=== PATIENT | female | born 1965 | race Caucasian/White ===

== ENCOUNTER → 2017-08-25 | Outpatient (CLI) | payer OTHER ==
--- NOTE | 2017-08-25 09:20 | FL ---
EXAMINATION TYPE: FL barium swallow DATE OF EXAM: 08/25/2017 CLINICAL HISTORY: Recurrent distal abdominal pain after Austyn fundoplication. TECHNIQUE: A double contrast esophagram is performed utilizing air and barium. A total of 56 second s of fluoroscopic time was utilized during procedure with 91 images saved. COMPARISON: None FINDINGS: The esophagus shows normal motility and emptying into the stomach. Small hiatal hernia is p resent in addition to a wide mouth saccular outpouching at the distal esophagus, thought to be postsu rgical with no focal fissuring. No evidence of stricture noted are obstruction. Minimal gastroesopha geal reflux was seen during real time performance of this study in the gravity independent position u tilizing the Valsalva maneuver. This was seen to the distal third of the esophagus. IMPRESSION: 1. Small recurrent hiatal hernia with widemouth saccular outpouching at the distal esophagus, likely postsurgical. 2. Minimal gastroesophageal reflux to the level of the distal third of the esophagus in the gravity i ndependent portion of the examination utilizing the Valsalva maneuver.
== END ==
LOC: RADFLWHC 08:06
PROVIDERS: ATTEND Surgery
DX: K21.9 Gastro-esophageal reflux disease without esophagitis (principal); K44.9 Diaphragmatic hernia without obstruction or gangrene
CPT/HCPCS: 74220

== ENCOUNTER 2017-09-01 10:54 | Day surgery (SDC) | payer OTHER ==
[2017-08-26 14:14] VITALS: BMI 39.1
[~2017-09-01 10:54] MED LIST: LACTATED RINGERS 1,000 ML IV SCH; LIDOCAINE 1% 20 ML VIAL (10MG/ML) FOR IV START INTRADERMA PRN
[2017-09-01 12:10] VITALS: TEMP 98.6
[2017-09-01] MEDS ORDERED: MIDAZOLAM 2 MG/2 ML VIAL IVP ONE (13:20)
--- NOTE | 2017-09-01 13:25 | P.GSHP ---
History of Present Illness H&P Date: 09/01/17 Chief Complaint: Epigastric abdominal pain, GERD This a 52-year-old female who's had complaints of epigastric pain. Patient has a history of previous hiatal hernia Proximally a year ago. She's had some minimal GERD. Past Medical History Past Medical History: GERD/Reflux, Hyperlipidemia, Hypertension, Seizure Disorder Additional Past Medical History / Comment(s): hx seizure disorder last seizure 8 -9 years ago, hiatal hernia, History of Any Multi-Drug Resistant Organisms: None Reported Past Surgical History: Orthopedic Surgery, Tonsillectomy Additional Past Surgical History / Comment(s): arthroscopy rt knee, exploratory lap for fertility issues, EGD,colonoscopy Past Anesthesia/Blood Transfusion Reactions: Family History of Problems w/ Anesthesia, Postoperative Nausea & Vomiting (PONV) Additional Past Anesthesia/Blood Transfusion Reaction / Comment(s): mother hard time waking up Smoking Status: Never smoker - Past Family History Mother Family Medical History: Cancer Additional Family Medical History / Comment(s): breast Medications and Allergies Home Medications Medication Instructions Recorded Confirmed Type Albuterol Nebulized [Ventolin 2.5 mg INHALATION RT-BID PRN 08/10/16 09/01/17 History Nebulized] Ergocalciferol [Vitamin D2 50,000 unit PO MO 08/10/16 09/01/17 History (DRISDOL)] Lisinopril [Zestril] 20 mg PO DAILY 08/10/16 09/01/17 History Simvastatin [Zocor] 40 mg PO HS 08/10/16 09/01/17 History Allergies Allergy/AdvReac Type Severity Reaction Status Date / Time No Known Allergies Allergy Verified 08/26/17 14:09 Surgical - Exam Vital Signs Temp Pulse Resp BP Pulse Ox 98.6 F 98 16 122/94 98 09/01/17 12:07 09/01/17 12:07 09/01/17 12:07 09/01/17 12:07 09/01/17 12:07 - General well developed, no distress - Eyes PERRL - ENT normal pinna - Neck no masses - Respiratory normal expansion - Cardiovascular Rhythm: regular - Abdomen Abdomen: soft, non tender Assessment and Plan Assessment: GERD, abdominal pain. We'll perform EGD
[2017-09-01] MEDS ORDERED: PROPOFOL 10 MG/ML 20 ML VIAL IV ONE (13:31)
[2017-09-01] MEDS ORDERED: GLYCOPYRROLATE 0.2 MG/ML 2 ML VIAL ONE (13:31)
[2017-09-01] MEDS ORDERED: LIDOCAINE 1% INJ 10MG/ML (20 ML MDV) ONE (13:31)
--- NOTE | 2017-09-01 13:42 | P.OP ---
Date of Procedure: 09/01/17 Preoperative Diagnosis: GERD Postoperative Diagnosis: Small hiatal hernia Mild esophagitis Mild antral gastritis Procedure(s) Performed: EGD Anesthesia: MAC Surgeon: Edvin Mathis Pathology: other (Antrum, esophagus) Condition: stable Disposition: PACU Description of Procedure: The patient's placed on the endoscopy table in the lateral position. She received IV sedation. The gastroscope placed oropharynx passed in the esophagus and stomach. Scope was then placed through the pylorus. The first and second portion of the duodenum appeared normal. Scope was then brought back the antrum and this appeared mildly inflamed. A biopsies performed. The scope was unretroflexed and remainder stomach appeared normal. There was a small recurrent hiatal hernia. The GE junction was at 38 cm. The distal esophagus appeared mildly inflamed a biopsies performed. The proximal esophagus appeared normal. Scope withdrawn for patient.
[2017-09-01 14:07] VITALS: BP 132/80; PULSE 97; RESP 16
== END 2017-09-01 14:33 | disposition home or self-care (01) ==
LOC: ORWHC2ENDO 10:54
PROVIDERS: ATTEND Surgery
DX: K21.0 Gastro-esophageal reflux disease with esophagitis (principal); K29.50 Unspecified chronic gastritis without bleeding; K44.9 Diaphragmatic hernia without obstruction or gangrene; I10 Essential (primary) hypertension; J45.909 Unspecified asthma, uncomplicated; E78.5 Hyperlipidemia, unspecified; Z79.899 Other long term (current) drug therapy; Z80.3 Family history of malignant neoplasm of breast
CPT/HCPCS: 43239; 88305; 88342; J2250; J2001; J2704

== ENCOUNTER → 2018-07-27 | Outpatient (CLI) | payer SELFPAY ==
--- NOTE | 2018-07-28 12:55 | MM ---
Reason for exam: screening (asymptomatic). History: Patient is nulliparous. Family history of breast cancer in mother and breast cancer in maternal aunt. Physical Findings: A clinical breast exam by your physician is recommended on an annual basis and results should be correlated with mammographic findings. MG Screening Mammo w CAD Bilateral CC and MLO view(s) were taken. No prior studies available for comparison. There are two right masses. First, right upper outer quadrant middle depth. Second, lower inner quadrant posterior depth. Left lower central middle depth 4mm mass. Right upper outer quadrant focal asymmetry middle posterior depth. ASSESSMENT: Incomplete: need additional imaging evaluation, BI-RAD 0 RECOMMENDATION: Ultrasound of both breasts. Right upper outer quadrant and lower inner quadrant. Left lower inner quadrant and lower outer quadrant.
== END | disposition home or self-care (01) ==
LOC: RADMAMWWP 07:41
PROVIDERS: ATTEND Family Medicine
DX: Z12.31 Encounter for screening mammogram for malignant neoplasm of breast (principal)
CPT/HCPCS: 77067

== ENCOUNTER → 2018-08-02 | Outpatient (CLI) | payer OTHER ==
--- NOTE | 2018-08-02 09:59 | USB ---
Reason for exam: additional evaluation requested from abnormal screening. History: Patient is nulliparous. Family history of breast cancer in mother at age 60, breast cancer in maternal aunt at age 30, and breast cancer in maternal cousin at age 60. Physical Findings: Nurse Summary: all soft, movable (nurse ts). US Breast Workup Limited AGUS Technologist: Anabela Trevino, RT (R)(M) Left limited breast ultrasound including focal area of concern, retroareolar and axilla demonstrates a 4 x 3 x 4mm oval, cystic lesion at 6 o'clock, benign, corresponds to mammographic finding. Right limited breast ultrasound including focal area of concern, retroareolar and axilla demonstrates a 7 x 4 x 7mm oval, cystic lesion at 11 o'clock, benign, corresponds to the mammographic finding. Right upper outer quadrant focal asymmetry corresponds to island of dense fibroglandular tissue at 10 o'clock on image 25. These results were verbally communicated with the patient and result sheet given to the patient on 08/02/18. ASSESSMENT: Benign, BI-RAD 2 RECOMMENDATION: Return to routine screening mammogram schedule for both breasts.
== END ==
LOC: RADUSWWP 07:38
PROVIDERS: ATTEND Family Medicine
DX: R92.8 Other abnormal and inconclusive findings on diagnostic imaging of breast (principal)

== ENCOUNTER → 2018-11-18 | Outpatient (CLI) | payer OTHER ==
--- NOTE | 2018-11-18 09:53 | FL ---
ESOPHOGRAM. HISTORY: GERD, hx of HH repair, 1min 8sec fl time Esophagram was performed per the air contrast technique. The patient swallowed barium and effervesce nt crystals without difficulty or delay. Esophageal peristalsis and motility appear to be within normal limits. There is no evidence for filling defect, mass or diverticulum. There is a small recurrent hiatal hernia noted. Subsequently single contrast cervical esophagram was performed which fails demonstrate evidence for a spiration penetration or mass. IMPRESSION: There is a small recurrent hiatal hernia noted.
== END | disposition home or self-care (01) ==
LOC: RADFLWHC 08:15
PROVIDERS: ATTEND Surgery
DX: K44.9 Diaphragmatic hernia without obstruction or gangrene (principal); K21.9 Gastro-esophageal reflux disease without esophagitis
CPT/HCPCS: 74220

== ENCOUNTER 2018-11-22 09:53 | Day surgery (SDC) | payer OTHER ==
[2018-11-18 11:55] VITALS: BMI 38.4
[~2018-11-22 09:53] MED LIST changes: -LACTATED RINGERS 1,000 ML IV SCH
[2018-11-22] MEDS: LACTATED RINGERS 1,000 ML IV SCH ×2 (10:30→10:36)
[2018-11-22 10:39] VITALS: PULSE 82; RESP 16; TEMP 98.5
[2018-11-22] MEDS ORDERED: LIDOCAINE 1% INJ 10MG/ML (20 ML MDV) ONE (10:39)
[2018-11-22] MEDS ORDERED: PROPOFOL 10 MG/ML 20 ML VIAL IV ONE (10:39)
--- NOTE | 2018-11-22 10:42 | P.GSHP ---
History of Present Illness H&P Date: 11/22/18 Chief Complaint: GERD This is a 53-year-old female who presents today for EGD. She's had issues with GERD. Her recent esophagram shows evidence of a small recurrent hiatal hernia. Past Medical History Past Medical History: GERD/Reflux, Seizure Disorder Additional Past Medical History / Comment(s): dx/tx whooping cough -2017, ,hx seizure disorder last seizure about 10 years ago, hiatal hernia, migraines, History of Any Multi-Drug Resistant Organisms: None Reported Past Surgical History: Orthopedic Surgery, Tonsillectomy Additional Past Surgical History / Comment(s): arthroscopy rt knee, exploratory lap for fertility issues, EGD,colonoscopy, oral surgery, hiatal hernia surgery Past Anesthesia/Blood Transfusion Reactions: Family History of Problems w/ Anesthesia Additional Past Anesthesia/Blood Transfusion Reaction / Comment(s): mother hard time waking up Smoking Status: Never smoker - Past Family History Mother Family Medical History: Cancer Additional Family Medical History / Comment(s): breast Medications and Allergies Home Medications Medication Instructions Recorded Confirmed Type Albuterol Nebulized [Ventolin 2.5 mg INHALATION BID PRN 08/10/16 11/22/18 History Nebulized] Ergocalciferol [Vitamin D2 50,000 unit PO MO 08/10/16 11/22/18 History (DRISDOL)] Lisinopril [Zestril] 20 mg PO SUTUTH 08/10/16 11/22/18 History Simvastatin [Zocor] 40 mg PO HS 08/10/16 11/22/18 History Ibuprofen 200 mg PO DIRECTED PRN 11/18/18 11/22/18 History Omeprazole 40 mg PO QAM 11/18/18 11/22/18 History Allergies Allergy/AdvReac Type Severity Reaction Status Date / Time No Known Allergies Allergy Verified 11/22/18 10:31 Surgical - Exam Vital Signs Temp Pulse Resp BP Pulse Ox 98.5 F 82 16 163/87 98 11/22/18 10:28 11/22/18 10:28 11/22/18 10:28 11/22/18 10:28 11/22/18 10:28 - General well developed, well nourished, no distress - Eyes PERRL - ENT normal pinna - Neck no masses - Respiratory normal expansion - Cardiovascular Rhythm: regular - Abdomen Abdomen: soft, non tender Assessment and Plan Assessment: GERD. We'll perform EGD.
--- NOTE | 2018-11-22 10:49 | P.OP ---
Date of Procedure: 11/22/18 Preoperative Diagnosis: GERD Postoperative Diagnosis: Antral gastritis Small recurrent hiatal hernia Procedure(s) Performed: EGD Anesthesia: MAC Surgeon: Edvin Mathis Pathology: other (Antrum, esophagus) Condition: stable Disposition: PACU Description of Procedure: The patient was placed on the endoscopy table in the lateral position. She received IV sedation. The gastroscope placed oropharynx and passed into the esophagus and into the stomach. Scope was then placed through the pylorus. The first and second portion of the duodenum appeared normal. Scope was then brought back the antrum this was mildly inflamed. A biopsies performed. Scope was retroflexed. The patient appeared to have a small recurrent sliding hiatal hernia. Scope was then brought back into the distal esophagus. The GE junction was at 38 cm. The distal esophagus appeared minimally inflamed. A biopsies performed. The proximal esophagus. Normal. Scope was withdrawn for patient.
[2018-11-22 11:14] VITALS: BP 152/91
== END 2018-11-22 12:05 | disposition home or self-care (01) ==
LOC: ORWHC2ENDO 09:53
PROVIDERS: ATTEND Surgery
DX: K29.50 Unspecified chronic gastritis without bleeding (principal); K21.9 Gastro-esophageal reflux disease without esophagitis; K44.9 Diaphragmatic hernia without obstruction or gangrene; J45.909 Unspecified asthma, uncomplicated; I10 Essential (primary) hypertension; E78.5 Hyperlipidemia, unspecified; G40.909 Epilepsy, unspecified, not intractable, without status epilepticus; G43.909 Migraine, unspecified, not intractable, without status migrainosus; Z79.899 Other long term (current) drug therapy
CPT/HCPCS: 88305; 43239; J2001; J2704

== ENCOUNTER → 2018-12-06 | Outpatient (CLI) | payer OTHER ==
[2018-12-06 08:54] VITALS: BP 158/88; PULSE 82; RESP 18; TEMP 97; BMI 37.0
--- NOTE | 2018-12-06 09:42 | P.HPOB ---
History of Present Illness H&P Date: 12/06/18 Chief Complaint: The patient is here for her routine gynecologic exam. This is a 53-year-old with an LMP of November 2017. She states that has been one year since her LMP. She denies any significant hot flashes but does have an occasional mild hot flash. She is without gynecologic complaints. She states it is been about 2 years since her last pelvic exam. She is here to establish with this office. Review of Systems She states she has intentionally lost about 15 pounds over the past year. She would like to lose more weight. She denies respiratory, or cardiac problems. G.I.: occasional gastric reflux. Past Medical History Past Medical History: GERD/Reflux, Hyperlipidemia, Hypertension, Seizure Disorder Additional Past Medical History / Comment(s): dx/tx whooping cough -2016 and has used albuterol infrequently since, ,hx seizure disorder last seizure about 2007, hiatal hernia, migraines. PAST [employer]CH[employer]SM[employer] HISTORY: She has no history of STDs. She has a history of secondary infertility. History of Any Multi-Drug Resistant Organisms: None Reported Past Surgical History: Hernia Repair, Orthopedic Surgery, Tonsillectomy Additional Past Surgical History / Comment(s): arthroscopy rt knee, exploratory lap for fertility issues, EGD,colonoscopy, oral surgery, hiatal hernia surgery. VTPx2. Colonoscopy 2018 also upper endoscopy in the past. Past Anesthesia/Blood Transfusion Reactions: Family History of Problems w/ Anesthesia Additional Past Anesthesia/Blood Transfusion Reaction / Comment(s): mother hard time waking up Past Psychological History: No Psychological Hx Reported Smoking Status: Never smoker Past Alcohol Use History: Occasional (0-2 per month) Past Drug Use History: None Reported Additional History: She has been since 2004. They have an adopted son. She cleans houses. - Past Family History Mother Family Medical History: Cancer (Breast cancer), Myocardial Infarction ([place]) Additional Family Medical History / Comment(s): breast CA. Maternal aunt had breast cancer. 3rd cousin had endometrial cancer. Father Family Medical History: COPD (Emphysema) Medications and Allergies Home Medications Medication Instructions Recorded Confirmed Type Albuterol Nebulized [Ventolin 2.5 mg INHALATION BID PRN 08/10/16 12/06/18 History Nebulized] Ergocalciferol [Vitamin D2 50,000 unit PO MO 08/10/16 12/06/18 History (DRISDOL)] Lisinopril [Zestril] 20 mg PO SUTUTH 08/10/16 12/06/18 History Simvastatin [Zocor] 40 mg PO HS 08/10/16 12/06/18 History Omeprazole 40 mg PO QAM 11/18/18 12/06/18 History Allergies Allergy/AdvReac Type Severity Reaction Status Date / Time No Known Allergies Allergy Verified 12/06/18 08:48 Exam Vital Signs Temp Pulse Resp BP Pulse Ox 12/06/18 08:50 97.0 F L 82 18 158/88 98 Intake and Output 12/05/18 12/06/18 12/06/18 22:59 06:59 14:59 Other: Weight 113.852 kg Height 5'9", weight 251 pounds, BMI 37.1. This is a well-developed well-nourished heavyset white female who is alert and oriented times 3 in no acute distress. HEENT: Within normal limits. NECK: Supple without mass or thyromegaly. CHEST AND LUNGS: Clear to auscultation. HEART: Regular rate and rhythm. BREASTS: Are without mass or discharge. AXILLARY EXAM: Negative for adenopathy. BACK: Negative for CVA tenderness. ABDOMEN: Soft, nontender, without palpable masses. PELVIC EXAM: Normal external genitalia with mild atrophy. Cervix and vagina appear normal with mild atrophy. The cervix is nulliparous and slightly stenotic without lesions. There is no unusual discharge. There is no evidence of prolapse. The uterus is midposition, nongravid size and nontender. There are no palpable adnexal masses or tenderness. RECTAL EXAM: rectovaginal exam is negative for mass or tenderness and is negative for occult blood. EXTREMITIES: Nontender. IMPRESSION: 1. 53-year-old menopausal female with normal gynecologic exam. PLAN: 1. Pap smear was performed. 2. Self breast awareness was discussed with the patient. 3. Screening mammogram will be done today. 4. Osteoporosis prevention was discussed. I have stressed the importance of adequate calcium, vitamin D and regular exercise. Recommended amounts of calcium and vitamin D were also discussed. 5. I have recommended that she do self blood pressure checks on a regular basis and follow-up with Dr. Stuart for blood pressure elevations. 6. She will return in one year.
== END ==
LOC: WWCWWP 08:21
PROVIDERS: ATTEND Obstetrics & Gynecology
DX: Z53.9 Procedure and treatment not carried out, unspecified reason (principal)

== ENCOUNTER → 2019-11-21 | Outpatient (CLI) | payer OTHER ==
--- NOTE | 2019-11-22 11:40 | MM ---
Reason for exam: screening (asymptomatic). Last mammogram was performed 1 year and 4 months ago. History: Patient is postmenopausal and is nulliparous. Family history of breast cancer in mother at age 60, breast cancer in maternal aunt at age 30, and breast cancer in maternal cousin at age 60. Physical Findings: A clinical breast exam by your physician is recommended on an annual basis and results should be correlated with mammographic findings. MG Screening Mammo w CAD Bilateral CC, MLO, and XCCL view(s) were taken. Prior study comparison: July 27, 2018, bilateral MG screening mammo w CAD. There are scattered fibroglandular densities. Stable right upper outer quadrant focal asymmetry and subcentimeter left mass at 11 o'clock, sonographic cyst on the prior ultrasound. ASSESSMENT: Benign, BI-RAD 2 RECOMMENDATION: Routine screening mammogram of both breasts in 1 year.
== END | disposition home or self-care (01) ==
LOC: RADMAMWWP 07:31
PROVIDERS: ATTEND Family Medicine
DX: Z12.31 Encounter for screening mammogram for malignant neoplasm of breast (principal)
CPT/HCPCS: 77067

== ENCOUNTER → 2019-12-13 | Outpatient (CLI) | payer OTHER ==
[2019-12-13 11:39] LABS: D-Dimer 0.65 mg/L FEU (<0.60); Prothrombin Time 10.5 sec (9.0-12.0)
[2019-12-13 18:00] LABS: Cardiolipin Ab IgG Interp NEGATIVE (NEGATIVE); Cardiolipin Ab IgM Interp NEGATIVE (NEGATIVE); Cardiolipin IgA Antibody 0.6 U/mL; Cardiolipin IgM Antibody 1.9 U/mL
[2019-12-14 10:48] LABS: Anti-Thrombin III Antigen 131 % (80 - 120); Protein S Antigen 130 % (50 - 140)
[2019-12-14 14:14] LABS: APTT 42 Sec(s) (<43); Dilute Russell Viper Venom 37 Sec(s) (<44)
[2019-12-15 11:32] LABS: Protein C Antigen 170 % (72-160)
== END | disposition home or self-care (01) ==
LOC: LABWHC1 09:38
PROVIDERS: ATTEND Nurse Practitioner Family
DX: I63.9 Cerebral infarction, unspecified (principal)
CPT/HCPCS: 36415; 81240; 81291; 83090; 85300; 85301; 85302; 85303; 85305; 85306; 85379; 85384; 85610; 85613; 85730; 86147

== ENCOUNTER 2020-07-12 17:59 | Emergency (ER) | payer OTHER ==
[2020-07-12 18:12] VITALS: TEMP 98.2
[2020-07-12] MEDS ORDERED: SODIUM CHLORIDE 0.9% 1,000 ML IV STA (18:18)
[2020-07-12 18:54] LABS: Appearance,Urine Clear (Clear); Bilirubin,Urine Negative (Negative); Blood,Urine Negative (Negative); Color,Urine Light Yellow; Glucose,Urine (UA) Negative (Negative); Ketones,Urine Negative (Negative); Leukocyte Esterase,Urine Negative (Negative); Nitrite,Urine Negative (Negative); Protein,Urine Negative (Negative); Specific Gravity,Urine 1.008 (1.001-1.035); Urobilinogen,Urine <2.0 mg/dL (<2.0)
[2020-07-12 18:54] LABS: Basophils % (A) 0 %; Eosinophils # (A) 0.2 k/uL (0-0.7); Eosinophils % (A) 3 %; HCT 37.7 % (34.0-46.0); HGB 12.2 gm/dL (11.4-16.0); Lymphocytes # (A) 1.6 k/uL (1.0-4.8); Lymphocytes % (A) 25 %; MCH 27.8 pg (25.0-35.0); MCHC 32.3 g/dL (31.0-37.0); MCV 85.9 fL (80.0-100.0); Mean Platelet Volume 6.5; Monocytes # (A) 0.4 k/uL (0-1.0); Monocytes % (A) 6 %; Neutrophils # (A) 4.3 k/uL (1.3-7.7); Neutrophils % (A) 66 %; Platelet Count 286 k/uL (150-450); RBC 4.38 m/uL (3.80-5.40); RDW 12.9 % (11.5-15.5); WBC 6.6 k/uL (3.8-10.6)
[2020-07-12 19:02] LABS: Partial Thromboplastin Time 23.8 sec (22.0-30.0); Prothrombin Time 9.9 sec (9.0-12.0)
[2020-07-12 19:04] LABS: ALT 22 U/L (4-34); AST 32 U/L (14-36); African American GFR (CKD) >90 (>60 ml/min/1.73 sqM); Albumin 4.5 g/dL (3.5-5.0); Alcohol <10 mg/dL; Alkaline Phosphatase 87 U/L (38-126); Anion Gap 8 mmol/L; Blood Urea Nitrogen 14 mg/dL (7-17); Calcium 9.8 mg/dL (8.4-10.2); Carbon Dioxide 24 mmol/L (22-30); Chloride 110 mmol/L (98-107); Glucose 124 mg/dL (74-99); Non-African American GFR(CKD) >90 (>60 ml/min/1.73 sqM); Potassium 3.9 mmol/L (3.5-5.1); Sodium 142 mmol/L (137-145); Total Bilirubin 0.4 mg/dL (0.2-1.3); Total Protein 6.7 g/dL (6.3-8.2)
[2020-07-12] MEDS ORDERED: MORPHINE SULFATE 4 MG/ML SYRINGE IV STA (19:11)
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
[2020-07-12 19:14] LABS: Amphetamine Screen,Urine Not Detected (NotDetected); Barbiturate Screen,Urine Not Detected (NotDetected); Benzodiazepines Screen,Urine Not Detected (NotDetected); Cocaine Screen,Urine Not Detected (NotDetected); Methadone Screen, Urine Not Detected (NotDetected); Opiate Screen,Urine Not Detected (NotDetected); Oxycodone Screen, Urine Not Detected (NotDetected); Phencyclidine Screen,Urine Not Detected (NotDetected); Tricyclic Antidepressant,Urine Not Detected (NotDetected); Urn Cannabinoid Scrn Not Detected (NotDetected)
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
--- NOTE | 2020-07-12 20:51 | XR ---
EXAMINATION TYPE: XR humerus LT DATE OF EXAM: 07/12/2020 COMPARISON: None HISTORY: Pain TECHNIQUE: 2 view left humerus FINDINGS: No acute fracture or dislocation is evident. Soft tissues appear normal. Joint spaces are p reserved. IMPRESSION: 1. Normal 2 view left humerus
[2020-07-12] MEDS ORDERED: ACET/COD 300 MG/30 MG STARTER PACK 6 TAB BTL PO STA (21:05)
[2020-07-12 21:22] VITALS: BP 148/100; PULSE 84; RESP 18
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
== END 2020-07-12 21:36 | disposition home or self-care (01) ==
LOC: EC 17:59
DX: Z04.1 Encounter for examination and observation following transport accident (principal); I10 Essential (primary) hypertension; E78.5 Hyperlipidemia, unspecified; K21.9 Gastro-esophageal reflux disease without esophagitis; G40.909 Epilepsy, unspecified, not intractable, without status epilepticus; F17.200 Nicotine dependence, unspecified, uncomplicated; Z79.82 Long term (current) use of aspirin; Z79.899 Other long term (current) drug therapy
CPT/HCPCS: 36415; 93005; 86900; 86901; 80053; 84484; 85025; 85610; 85730; 86850; 81003; 80306; 73060; 72125; 70450; 71260; 74177; 99285; 96374; 96361 ×3; G0480; J2270; Q9967; 80320

== ENCOUNTER → 2022-07-31 | Outpatient (CLI) | payer OTHER ==
[2022-07-31 22:52] LABS: HCT 38.4 % (37.2-46.3); HGB 12.5 g/dL (12.0-15.0); MCH 28.7 pg (27.0-32.0); MCHC 32.6 g/dL (32.0-37.0); MCV 88.3 fL (80.0-97.0); Mean Platelet Volume 9.7 fL (9.5-12.2); NRBC Per 100 WBC 0 /100 WBCS (0.0-0.0); Platelet Count 285 X 10*3/uL (140-440); RBC 4.35 X 10*6/uL (4.10-5.20); RDW 13.2 % (11.5-14.5); WBC 6.41 X 10*3/uL (4.50-10.00)
[2022-08-01 00:07] LABS: African American GFR (CKD) 104.3 (60.0-200.0); Albumin 4.8 g/dL (3.8-4.9); Albumin/Globulin Ratio 2.49 (1.60-3.17); Anion Gap 11.6 mmol/L (10.00-18.00); BUN/Creat Ratio 14.78 Ratio (12.00-20.00); Calcium 9.7 mg/dL (8.7-10.3); Carbon Dioxide 24.8 mmol/L (20.0-27.5); Globulin 1.9 g/dL (1.6-3.3); Potassium 4.1 mmol/L (3.5-5.5); Total Bilirubin 0.3 mg/dL (0.30-1.20); Total Protein 6.7 g/dL (6.2-8.2)
== END | disposition home or self-care (01) ==
LOC: LABWHC1 15:13
PROVIDERS: ATTEND Family Medicine Adult Medicine
DX: E78.2 Mixed hyperlipidemia (principal); R73.9 Hyperglycemia, unspecified; E55.9 Vitamin D deficiency, unspecified; R53.83 Other fatigue
CPT/HCPCS: 36415; 80053; 82306; 82607; 83036; 83735; 84443; 85027